=== PATIENT | male | born 1990 | race Two or more races ===

== ENCOUNTER → 2024-02-03 | Outpatient (BNVA) | payer OTHER, SELFPAY | END | disposition home or self-care (01) | PROVIDERS: PCP Nurse Practitioner Family; Referring Provider Nurse Practitioner Family; Visit Provider Nurse Practitioner Family | DX: I10 Essential (primary) hypertension (principal); J30.9 Allergic rhinitis, unspecified | CPT/HCPCS: 99213 ==

== ENCOUNTER → 2024-03-20 | Outpatient (BNVA) | payer OTHER, SELFPAY | END | disposition home or self-care (01) | PROVIDERS: PCP Nurse Practitioner Family; Referring Provider Nurse Practitioner Family; Visit Provider Nurse Practitioner Family | DX: H10.31 Unspecified acute conjunctivitis, right eye (principal) | CPT/HCPCS: 99213 ==

== ENCOUNTER → 2024-04-23 | Outpatient (BNVA) | payer OTHER, SELFPAY | END | disposition home or self-care (01) | PROVIDERS: PCP Nurse Practitioner Family; Referring Provider Nurse Practitioner Family; Visit Provider Nurse Practitioner Family | DX: J02.9 Acute pharyngitis, unspecified (principal) | CPT/HCPCS: 87804; 87811; 99213 ==